=== PATIENT | male | born 1960 | race Caucasian/White ===

== ENCOUNTER → 2017-05-12 | Outpatient (CLI) | payer OTHER | END | disposition home or self-care (01) | LOC: KCIC 11:13 | DX: S63.062A Subluxation of metacarpal (bone), proximal end of left hand, initial encounter (principal); M19.042 Primary osteoarthritis, left hand; M19.041 Primary osteoarthritis, right hand; X58.XXXA Exposure to other specified factors, initial encounter; Y93.89 Activity, other specified; Y92.89 Other specified places as the place of occurrence of the external cause; Y99.8 Other external cause status | CPT/HCPCS: 73130 ==

== ENCOUNTER → 2019-08-16 | Outpatient (CLI) | payer MEDICARE, OTHER ==
--- NOTE | 2019-08-17 08:53 | SLEEP ---
DATE OF STUDY: 08/16/2019 HOME POLYSOMNOGRAM REPORT OBJECTIVE: The patient is a 59-year-old male with excessive somnolence and snoring. [place] sleep score 11. Height 71 inches, weight 212 pounds, body mass index 29.6. INTERPRETATION: Respiratory monitoring shows an apnea-hypopnea index of 10.9 events per hour, all obstructive or mixed in nature. The minimum oxygen saturation is 87%. No significant cardiac arrhythmias are observed. IMPRESSION: Abnormal home polysomnogram study showing obstructive sleep apnea and hypopnea. RECOMMENDATIONS: We will try to put the patient on a variable CPAP and the patient will follow up in my office. Thank you for letting us help with the patient's care. LIZETT MUÑOZ MD DR: ELIZABETH/cristi JOB#: [id number] / [id number] SONJA Obrien MD
== END | disposition home or self-care (01) ==
LOC: RT 05:43
PROVIDERS: ATTEND Psychiatry & Neurology Neurology with Special Qualifications in Child Neurology
DX: G47.33 Obstructive sleep apnea (adult) (pediatric) (principal); G47.10 Hypersomnia, unspecified
CPT/HCPCS: G0399